=== PATIENT | female | born 1935 | race Caucasian/White ===

== ENCOUNTER → 2017-01-25 | Outpatient (CLI) | payer OTHER ==
--- NOTE | 2017-01-25 17:16 | DI ---
LEFT SHOULDER, 01/25/2017 12:50 PM: Clinical History: Left arm pain and weakness. Previous Exam: None at this facility. 3 views are submitted. There is no acute soft tissue, osseous, or joint abnormality. There are multip le punctate calcifications located in proximity to the coracoid process and this may be in the subsca pularis muscle. The visualized portions of the left apex and lung are normal. Readin. The shoulder and glenohumeral joint are normal. 2. There are soft tissue calcifications in the approximate location of the subscapularis muscle and this may be secondary to previous injury.
--- NOTE | 2017-01-25 21:12 | DI ---
MRI CERVICAL SPINE SCAN, 01/25/2017 12:49 PM: Clinical History: Left arm pain with weakness. Previous Exam: None. Sequences: Sagittal T1and T2 weighted. Axial T2 PLUS and FE 3D DUAL. Coronal T1 scans through the upp er cervical spine. The vertebral bodies are of normal height and size. There is marked hypertrophy of what probably repr esents the cruciate ligaments at C1-2. There is moderate to severe disc space narrowing from C3-4 thr ough C7-T1. All cervical disc spaces show desiccation change. The cervical cord and cerebellar tonsil s are normal. There is increased cervical lordosis in the upper half of the cervical spine. Dense byron cifications are present in the posterior half of T5 in this patient had a chest x-ray from 07/01/2008 t hat demonstrated the same finding and it has not changed. The C2-3 disc space is normal. C3-4 and C4- 5 both show bulging but not herniated discs without canal or neural foraminal stenosis. C5-6 has ante rior subluxation of C5 on C6 by approximately 2 mm and there is a bulging but not herniated disc with out canal or neural foraminal stenosis. C6-7 shows complete obliteration of the disc space with centr al bony spurring versus ossification of a focal herniated disc. There is no canal or neural foraminal stenosis. C7-T1 has partial fusion posteriorly but there is no canal or neural foraminal stenosis. T he T2-3 and T3-4 disc spaces have bulging but not herniated discs without canal or right neural eulalia inal stenosis. The left neural foramina are not visualized. Severe degenerative arthritic changes are present bilaterally from C2-3 to C6-7. Degenerative arthritic changes are also noted in the uncovert ebral joints bilaterally from C2-3 through at least C4-5. Readin. There is either a central bony spur or an ossified focal disc herniation at C6-7, without canal o r neural foraminal stenosis. 2. There is anterior subluxation of C5 on C6 by 2 mm with a bulging but not herniated disc or canal or neural foraminal stenosis. 3. C3-4, C4-5, C7-T1, T2-3 and T3-4 disc spaces show bulging but not herniated discs without canal o r neural foraminal stenosis. 4. C2-3 is normal. 5. There is increased cervical lordosis with degenerative arthritic changes bilaterally in the zygap ophyseal joints from C2-3 through C6-7 with severe degenerative arthritic changes bilaterally in the uncovertebral joints between C2-3 and C4-5. The lower levels are not well visualized.
== END ==
LOC: MRI 12:38
PROVIDERS: ATTEND Obstetrics & Gynecology Gynecology
DX: M54.2 Cervicalgia (principal); M79.602 Pain in left arm; M50.223 Other cervical disc displacement at C6-C7 level; M47.812 Spondylosis without myelopathy or radiculopathy, cervical region; M47.813 Spondylosis without myelopathy or radiculopathy, cervicothoracic region
CPT/HCPCS: 72141; 73030

== ENCOUNTER 2017-03-24 19:31 | Emergency (ER) | payer OTHER ==
[2017-03-24] MEDS ORDERED: Lidocaine 1% 10 MG/ML - 20 ML VIAL SUBCUT ONE (19:46)
[2017-03-24 19:48] VITALS: RESP 18; TEMP 97.8
[2017-03-24] MEDS ORDERED: DIPH,PERTUSS,TET(ADACEL) VAC/PF 0.5 ML (Tdap) IM ONE (19:49)
[2017-03-24] MEDS ORDERED: BACITRACIN 0.9 GM PACKET OINT TOPICAL ONE (20:26)
--- NOTE | 2017-03-25 01:17 | PDOC ---
Fall HPI - General Chief Complaint: Fall Stated Complaint: fall Date Seen by Provider: 03/24/17 Time Seen by Provider: 19:37 Source: POSITIVE: Patient, Other (Friend) Exam Limitations: POSITIVE: No limitations Nurse's Notes Reviewed & Considered: Yes - History of Present Illness Initial Comments: The patient is an 81-year-old female. She was outside taking a walk and tripped and fell forward onto a sidewalk. Incident occurred approximately 15 minutes RANGE RIDER. A nearby neighbor assisted her to her feet. She has been ambulatory. She denies any head trauma or pain. No hip pain. She did strike her head just above her right eyebrow and she is developing some periorbital ecchymosis. She has a 3.5 cm irregular laceration above her right eyebrow. She also sustained an abrasion to the superior aspect of her right shoulder and abrasions over the anterior aspect of both knees and to the dorsum of her right third finger. Patient denies any head, chest, abdominal, or hip pain. She states that her abrasions to her right shoulder, both knees and her right index finger are not particularly painful. Have you received a tetanus shot in the past 10 years?: Unknown Body Location Affected: REPORTS: Upper Extremity (R), Lower Extremity (L), Lower Extremity (R), Forehead, Face Timing: REPORTS: Abrupt Duration: 1 hour Severity: Moderate Context of Fall: REPORTS: Tripped Location of Fall: REPORTS: Other (On sidewalk) Fell From Height (in feet): 0 Quality: REPORTS: Other (Patient denies any real pain. Mild discomfort over her abrasions; see diagram) Associated Symptoms: REPORTS: Recalls Injury, Recalls Coming to ER, Blow to Head (Above right eyebrow). DENIES: Dazed, Seizure, Trouble Breathing, Memory Impairment, Lost Consciousness, Other Location of Injuries / Pain: REPORTS: Right, Left, Head, Shoulder, Hand, Knee Any Prior Injuries Related to Current Complaint?: No - Patient Home Medications Home Medications: Home Medications Estrogens,Conjugated [Premarin] 0.9 mg PO DAILY 08/05/10 Gabapentin 100 mg PO DAILY 08/05/10 Hydrochlorothiazide 25 mg PO DAILY 08/05/10 Ibandronate Sodium [Boniva] 150 mg PO .MONTHLY 08/05/10 Levothyroxine Sodium [Tirosint] 50 mcg PO DAILY 08/05/10 Metoprolol Succinate [Toprol Xl] 50 mg PO DAILY 08/05/10 Oxybutynin Chloride [Ditropan Xl] 7.5 mg PO DAILY 08/05/10 Sertraline HCl [Zoloft] 50 mg PO DAILY 08/05/10 Simvastatin [Zocor] 40 mg PO DAILY 08/05/10 - Patient Allergies Allergies/Adverse Reactions: Allergies Allergy/AdvReac Type Severity Reaction Status Date / Time Sulfa (Sulfonamide Allergy Intermediate HIVES Verified 03/24/17 19:34 Antibiotics) Past Medical History Cardiovascular History: Hypertension, Hyperlipidemia Genitourinary History: Incontinence Endocrine History: Hypothyroidism Musculoskeletal History: Arthritis, Osteoporosis, Osteoarthritis, Other (please comment) Additional Musculoskeletal History: PAIN ALL OVER Psychiatric History: Depression In Past Year Been Physically Harmed or Verbally Threatened: No History of MDRO: No Tobacco Use: Never Smoker Alcohol Use: Rarely Substance Use Type: None Previous Surgical History: No Significant Family History: No pertinent family hx Past Medical History Reviewed: Reviewed - No Changes ROS - Limitations ROS Limitations: No Limitations Constitution: REPORTS: Denies Symptoms Cardiovascular: REPORTS: Denies Cardiac Symptoms Respiratory: REPORTS: Denies Resp Symptoms Neurological: REPORTS: Denies Neuro Symptoms Gastrointestinal: REPORTS: Denies GI Symptoms Endocrine: REPORTS: Denies Symptoms Musculoskeletal: REPORTS: Denies MS Symptoms Genitourinary: REPORTS: Denies Symptoms Eyes: REPORTS: Denies Symptoms ENT: REPORTS: Denies Symptoms Skin: REPORTS: Other (Laceration above right eyebrow. Abrasions superior aspect of right shoulder, anterior aspect of both knees and dorsum of the third finger; see diagram.) Lympathic: REPORTS: Denies Lympathic Symptoms Immunologic: POSITIVE: Denies Symptoms Psychiatric: POSITIVE: Denies Psych Symptoms Fall Physical Exam - General Appearance General Appearance: POSITIVE: Alert, Cooperative, No Acute Distress - HEENT HEENT: POSITIVE: Eyes Inspection Nml, Ears Inspection Nml, Nose Inspection Nml, Oral/Dental Inspect. Nml, Pharynx Inspect. Nml, PERRL, EOMI, Other (3.5 irregular laceration above right eyebrow with subsequent right periorbital ecchymosis.). NEGATIVE: Head Inspection Nml - Pupil Size Pupil Size: 4 mm: Bilateral (PERRLA) - Neck Neck: POSITIVE: Non Tender, Painless ROM, Trachea Midline, Nexus Criteria Negative - Respiratory / CVS Respiratory / CVS: POSITIVE: Chest Non Tender, No Ecchymosis, Breath Sounds Normal, No Respiratory Distress, Heart Sounds Normal, Regular Rate/Rhythm Peripheral Pulses: Radial (R): 2+, Radial (L): 2+ - Abdomen Abdomen: Soft: (All Quadrants), Normal Bowel Sounds: (All Quadrants), Denies Tenderness: (All Quadrants), No Splenomegaly: (All Quadrants), No Hepatomegaly: (All Quadrants), No Guarding: (All Quadrants), No Rebound: (All Quadrants), No Palpable Pulse: (All Quadrants), No Palpabale Mass: (All Quadrants), No Distention: (All Quadrants), No Rigidity: (All Quadrants) - Neuro / Psych Neuro / Psych: POSITIVE: Oriented X3, mat sewer Normal As Tested, Motor Normal, Sensation Normal, Mood Appropriate, Affect Appropriate - Skin Skin: POSITIVE: Ecchymosis (Right periorbital), Laceration (Above right eyebrow) , See Diagram, Other (Abrasions superior aspect of right shoulder, anterior aspect of both knees and dorsum of right third finger) - Back Back: POSITIVE: Normal Inspection, No CVA Tenderness, Non Tender, Painless ROM, No Vertebral Tenderness - Extremities Extremity Assessment: Non-Tender: (ALL), Normal ROM: (ALL), No Edema: (ALL), Normal Inspection: (ALL), No Swelling: (ALL) Joint Exam: POSITIVE: Joints Normal, Normal ROM, Normal Gait, Normal Weight Bearing Images - Head Head: 1 - 3.5 cm irregular laceration 2 - Right periorbital ecchymosis - Hands Hand: 1 - Abrasion - Complete Complete: 1 - Abrasion 2 - Abrasion 3 - Abrasion Procedures - Laceration/Wound Repair Did patient have a laceration repair: Yes Site of Laceration/Wound: Above right eyebrow Wound Length (cm): 3.5 Wound's Depth, Shape: Into subcutaneous tissue, Irregular, Stellate Time of Suture Placement:: 21:45 Distal CMS: Yes Skin Prep: Sterile Field Maintained, Sterile Drapes Applied, Sterile Dressing Applied, Other (Normal saline) Local Anesthesia Used - Indicate Amt Used in Comment: Lidocaine 1%: Yes Irrigated w/ Saline (mL): 10 Wound Explored: No foreign body removed Wound Debrided: Minimal Wound Repaired With: Sutures single layer Suture Size/Type: 6:0 Number of Sutures: 7 Layer Closure?: No Drain Placement: No Sterile Dressing Applied?: Yes Procedure Note:: After local anesthesia with 1% lidocaine, laceration above right eyebrow was sterilely cleansed and irrigated with normal saline, and then repaired with 6-0 nylon simple interrupted sutures. Abrasions to patient's right shoulder, both knees and right middle finger were cleansed with normal saline and bacitracin dressing applied. Fall Progress - Patient's Progress Pain Medication Addressed: POSITIVE: Yes (Recommended Tylenol) School/Work Release Addressed: POSITIVE: Not Applicable Re-Examine Time:: 20:15 Re-Examine Comment: Primary closure of facial laceration complete. Abrasions cleansed and dressed as above. Status: POSITIVE: Unchanged, Re-Examined - Consult Counseled: POSITIVE: Patient, RE: DX, RE: Need for F/U Patient Care Time - Estimated PCT Patient Care Time (In Minutes): 33 Vital Signs - Recent Vital Signs Vital Signs: Vital Signs (Last 8 hours) Temp Pulse Resp BP Pulse Ox 03/24/17 19:31 97.8 F 71 18 158/104 96 - VS Reviewed Vital Signs Reviewed: Yes Discharge Clinical Impression: Laceration, Abrasion Discharge Disposition: Discharged to Home Condition: Good Patient Instructions Given at Discharge: Laceration (ED), Abrasion (ED) Additional Instructions: Keep laceration on right side of face clean. Return in 5 or 6 days for suture removal. Return sooner anytime at first sign of infection. Gently wash abrasions on your knees and right shoulder with soap and water and apply bacitracin dressing. Return anytime if condition worsens in any way. You are going to have a rather large black eye on the right. Cool compresses applied to this area might help reduce swelling. No aspirin or Advil or Aleve for 3 or 4 days. Return anytime if condition worsens in any way. Follow Up With: ABRAHAN HURTADO [Primary Care Provider] - (Instructions as above. Return in 5- 6 days for reevaluation and suture removal. Return anytime sooner if condition worsens in any way whatsoever. He received a tetanus vaccination in the emergency room and he'll not need another one of these for at least 7 years.)
== END 2017-03-24 20:55 | disposition home or self-care (01) ==
LOC: ER 19:31
DX: S01.111A Laceration without foreign body of right eyelid and periocular area, initial encounter (principal); S40.211A Abrasion of right shoulder, initial encounter; S80.212A Abrasion, left knee, initial encounter; S80.211A Abrasion, right knee, initial encounter; S60.412A Abrasion of right middle finger, initial encounter; W01.0XXA Fall on same level from slipping, tripping and stumbling without subsequent striking against object, initial encounter
CPT/HCPCS: 12013; 90471; 99282; J2001

== ENCOUNTER → 2017-04-30 | Outpatient (CLI) | payer OTHER ==
[2017-04-30 10:18] LABS: BASOPHILS # (AUTO) 0.13 10*3/UL; BASOPHILS % (AUTO) 1.5 % (0-1); EOSINOPHILS # (AUTO) 0.36 10*3/UL; EOSINOPHILS % (AUTO) 4.2 % (0-8); HEMATOCRIT 41.5 % (37.0-47.0); HEMOGLOBIN 13.7 g/dL (12.0-16.0); MEAN CORPUSCULAR HEMOGLOBIN 31.6 PG (27-31); MEAN CORPUSCULAR VOLUME 95.8 FL (81-99); MEAN PLATELET VOLUME 9.2 FL (7.4-12.2); MONOCYTES # (AUTO) 1.11 10*3/UL (0.3-0.8); NEUTROPHILS # (AUTO) 4.14 10*3/UL; NEUTROPHILS % (AUTO) 48.4 % (50-80); RED BLOOD COUNT 4.33 10^6/uL (4.20-5.40)
[2017-04-30 10:19] LABS: PLATELET MORPHOLOGY COMMENT NORMAL MORPHOLOGY (NORM); RBC MORPHOLOGY COMMENT NORMAL MORPHOLOGY (NORM); WBC MORPHOLOGY COMMENT NORMAL MORPHOLOGY (NORM)
[2017-04-30 10:35] LABS: CALCIUM 8.8 mg/dL (8.7-10.7); SERUM ALBUMIN 3.9 g/dL (3.5-4.8)
== END ==
LOC: LAB 10:03
PROVIDERS: ATTEND Nurse Practitioner Family
DX: I10 Essential (primary) hypertension (principal); E03.9 Hypothyroidism, unspecified
CPT/HCPCS: 36415; 80053; 84443; 85025